=== PATIENT | male | born 1960 | race Caucasian/White ===

== ENCOUNTER 2016-07-17 18:33 | Emergency (ER) | payer SELFPAY ==
[~2016-07-17] VITALS: Ht 165.1 cm; Wt 81.6 kg
--- NOTE | 2016-07-17 18:33 | NUR ---
PATIENT BIB [facility] FOR PREBOOK CLEARANCE . PT DENIES ANY MEDICAL HX . DENIES N/V/D; SKIN IS PINK/WARM/DRY; AAOX4 WITH EVEN AND STEADY GAIT; LUNGS CLEAR BL; HR EVEN AND REGULAR; PT DENIES ANY FEVER, CP, SOB, OR COUGH AT THIS TIME; PATIENT STATES PAIN OF 0/10 AT THIS TIME; VSS; PATIENT POSITIONED FOR COMFORT IN CHAIR. [facility] AT CHAIRSIDE. ER MD MADE AWARE OF PT STATUS.
[2016-07-17 18:41] VITALS: BP 126/83
--- NOTE | 2016-07-17 19:52 | NUR ---
Dr. Parks evaluating patient
[2016-07-17 19:55] VITALS: BP 126/83
--- NOTE | 2016-07-17 19:55 | NUR ---
PATIENT BIB [facility]. PATIENT EXAMINED BY DR. BARRAZA. PATIENT MEDICALLY CLEARED AND RELEASED IN CUSTODY IN STABLE CONDITION. ORIGINAL PRE-BOOK FORM GIVEN TO [facility] .
== END 2016-07-17 19:55 ==
LOC: MED 18:33
DX: Z02.89 Encounter for other administrative examinations (principal)
CPT/HCPCS: 99283

== ENCOUNTER 2021-11-24 15:08 | Emergency (ER) | payer MEDICAID ==
[~2021-11-24] VITALS: Ht 177.8 cm; Wt 99.8 kg
--- NOTE | 2021-11-24 15:10 | NUR ---
[facility] TO ER BED 3
[2021-11-24 15:15] VITALS: BP 131/75
--- NOTE | 2021-11-24 16:04 | NUR ---
61 y/o male biba from home with c/o alcohol intoxication. Per EMS, patients mom found patient on the kitchen floor. + LOC. Patients blood sugar en route to hospital was 137. Patient is noted with swelling to bilteral lower legs. Medical History: Alcohol Abuse NKDA
[2021-11-24 18:00] VITALS: BP 127/73
--- NOTE | 2021-11-24 18:00 | NUR ---
Patient discharged with v/s stable. Written and verbal after care instructions given. Patient verbalized understanding. Ambulatory with steady gait. All questions addressed prior to discharge. Advised to follow up with PMD.
--- NOTE | 2021-11-24 18:01 | NUR ---
Chart checked and completed. The patient's care was reviewed and supervised by Adri Morrison RN.
== END 2021-11-24 18:00 | disposition home or self-care (01) ==
LOC: MED 15:08
DX: F10.129 Alcohol abuse with intoxication, unspecified (principal); Z79.899 Other long term (current) drug therapy
CPT/HCPCS: 99283